=== PATIENT | male | born 1980 | race Caucasian/White ===

== ENCOUNTER 2019-10-09 02:31 | Emergency (ER) | payer MEDICAID ==
[~2019-10-09] VITALS: Ht 185.4 cm; Wt 99.3 kg
[~2019-10-09 02:31] MED LIST: CEPH-376 PO; OXYC-306 PO
--- NOTE | 2019-10-09 02:46 | NUR ---
PT AMBULATES TO ROOM FROM TRIAGE WITH STEADY GAIT.
--- NOTE | 2019-10-09 02:54 | NUR ---
DR ARELLANO AT FOR PT HISTORY AND ASSESSMENT.
[2019-10-09] MEDS ORDERED: LORazepam 1MG TABLET PO ONE (03:00)
[2019-10-09] MEDS ORDERED: LORazepam 1MG TABLET ONE (03:01)
--- NOTE | 2019-10-09 03:03 | NUR ---
PT MEDICATED PER MAR.
--- NOTE | 2019-10-09 03:08 | NUR ---
PT ON VS AND CARDIAC MONITORS. PT VSS AT THIS TIME. PT HAS CALL LIGHT WITHIN REACH.
--- NOTE | 2019-10-09 04:03 | NUR ---
PT D/C WITH D/C SUMMARY AND SCRIPTS. PT PROVIDED WITH SNACKS AND JUICE PER PT REQUEST. PT AMBULATES TO REGISTRATION DESK WITH STEADY GAIT FOR D/C HOME AND PROVIDED RESOURCES FOR ETOH DETOX. PT DENIES ANY OTHER NEEDS PERTAINING TO THIS VISIT.
[2019-10-09 04:04] VITALS: BP 167/88
== END 2019-10-09 04:12 | disposition home or self-care (01) ==
LOC: ED 04:08
DX: R06.00 Dyspnea, unspecified (principal); R06.02 Shortness of breath; F10.239 Alcohol dependence with withdrawal, unspecified; R45.1 Restlessness and agitation; F17.210 Nicotine dependence, cigarettes, uncomplicated; Y90.9 Presence of alcohol in blood, level not specified
CPT/HCPCS: 71045; 93005; 99284; 99406

== ENCOUNTER 2019-10-10 19:18 | Emergency (ER) | payer MEDICAID ==
[~2019-10-10] VITALS: Ht 185.4 cm; Wt 95.0 kg
[2019-10-10 19:27] VITALS: BP 139/89
[2019-10-10] MEDS ORDERED: SODIUM CHLORIDE FLUSH 10ML SYR IVF ONE (19:30)
[2019-10-10] MEDS ORDERED: SODIUM CHLORIDE 0.9% 1,000ML IVBOLUS ONE (19:30)
[2019-10-10] MEDS ORDERED: THIAMINE 100MG TABLET PO ONE (19:30)
[2019-10-10] MEDS ORDERED: LORazepam 2 MG/ML, 1ML IVPush ONE (19:30)
--- NOTE | 2019-10-10 19:30 | NUR ---
THIS IS A 39Y M BIB EMS [facility] [place] [facility]. PT WAS SEEN HERE RECENTLY FOR ETOH AND WAS D/C. PT REPORTS LEAVING FACILITY AND GETTING MORE VODKA. PT STS HE HAD A 5TH AND A PINT TODAY AND HAS NOT BEEN DRINKING WATER. PER EMS PT WAS TACHY IN THE 130'S AND APPEARED PALE. 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 PT CONNECTED TO ALL MONITORING VSS, AGENT SPA DESK AT BEDSIDE TO ASSESS PT AND DISCUSS POC.
--- NOTE | 2019-10-10 19:47 | NUR ---
PT TO CT
--- NOTE | 2019-10-10 19:55 | NUR ---
PT BACK FROM CT
[2019-10-10] MEDS ORDERED: THIAMINE 100MG TABLET ONE (19:57)
[2019-10-10] MEDS ORDERED: LORazepam 2 MG/ML, 1ML ONE (19:58)
--- NOTE | 2019-10-10 20:01 | NUR ---
PT MEDICATED PER MAR
--- NOTE | 2019-10-10 21:25 | NUR ---
PT PROVIDED WITH SNACKS PER TRANSPORTATION WORKER REQ
--- NOTE | 2019-10-10 21:55 | NUR ---
PT AMB TO RESTROOM STEADY GAIT. NO ASSIST REQ AT THIS TIME.
--- NOTE | 2019-10-10 22:06 | NUR ---
Patient/Caregiver given discharge instructions and they have confirmed that they understand the instructions. Patient ambulatory with steady gait.
== END 2019-10-10 22:07 | disposition home or self-care (01) ==
LOC: ED 19:48
DX: S09.90XA Unspecified injury of head, initial encounter (principal); F10.129 Alcohol abuse with intoxication, unspecified; R11.0 Nausea; R00.0 Tachycardia, unspecified; Y90.9 Presence of alcohol in blood, level not specified; W22.8XXA Striking against or struck by other objects, initial encounter; Y93.89 Activity, other specified; Y92.89 Other specified places as the place of occurrence of the external cause; Y99.8 Other external cause status
CPT/HCPCS: 36415; 70450; 80307; 93005; 96374; 99285; J2060; J7030

== ENCOUNTER 2020-09-22 22:12 | Emergency (ER) | payer MEDICAID ==
[~2020-09-22] VITALS: Ht 188 cm; Wt 90.0 kg
[~2020-09-22 22:12] MED LIST changes: -OXYC-306 PO; +OXYC1TAB17 PO
--- NOTE | 2020-09-23 00:01 | NUR ---
WITH REASSESSMENT-PATIENT SLEEPING SOUNDLY. EVEN/UNLABORED CHEST ROSHNI NOTED VSS ON NIBP/POX
--- NOTE | 2020-09-23 01:10 | NUR ---
REPORT TO FARZANA BRYAN
[2020-09-23 02:02] VITALS: BP 112/63
--- NOTE | 2020-09-23 02:02 | NUR ---
PT RESTING ON GURNEY. RESPIRATIONS EVEN AND UNLABORED. VSS.
--- NOTE | 2020-09-23 03:18 | NUR ---
RELIEF RN: PT SLEEPING. RR EVEN NON LABORED. WILL CTM
--- NOTE | 2020-09-23 04:42 | NUR ---
PT UP IN ROOM, AMBULATORY TO THE BATHROOM AND DISCHARGE DESK WITH A STEADY GAIT. PT A+OX4. PT REQUESTING DISCHARGE.
== END 2020-09-23 04:45 | disposition home or self-care (01) ==
LOC: ED 22:44
DX: F10.120 Alcohol abuse with intoxication, uncomplicated (principal); F17.210 Nicotine dependence, cigarettes, uncomplicated; Y90.0 Blood alcohol level of less than 20 mg/100 ml
CPT/HCPCS: 99406

== ENCOUNTER 2020-09-25 17:16 | Observation (INO) | payer MEDICAID ==
[~2020-09-25] VITALS: Ht 185.4 cm; Wt 97.0 kg
--- NOTE | 2020-09-25 17:27 | NUR ---
PT BIB EMS FOR ACUTE ALCOHOL INTOXICATION AND AGGRESSIVE BEHAVIOR IN [facility]. PER EMS, PT WAS SAYING INAPPROPRIATE THINGS AND GETTING AGITATED WITH PEOPLE ON THE STREET. UPON ARRIVAL TO [facility] ED, PT IS CALM, BUT STATES INAPPROPRIATE THINGS TO STAFF. PT EDUCATED ON NEED TO NOT USE OFFENSIVE LANGUAGE AND SEXUALLY HARRASS STAFF. PT ARRIVES WITH STABLE VS, AND REFUSES LETTING THIS RN ATTACH HIM TO VS MONITORING AT THIS TIME. AWAITING ERP FOR PT HISTORY AND ASSESSMENT. PT HAS CALL LIGHT WITHIN REACH AND BED RAILS UP.
[2020-09-25] MEDS ORDERED: SODIUM CHLORIDE 0.9% 1,000ML IVBOLUS ONE (18:00)
[2020-09-25 18:01] LABS: BASOPHILS % (AUTO) 1 % (0-1); EOSINOPHILS % (AUTO) 1 % (1-7); LYMPHOCYTES % (AUTO) 35 % (22-44); MEAN CORPUSCULAR HEMOGLOBIN 33.8 pg (27.5-34.5); MEAN CORPUSCULAR HGB CONC 34.7 g/dL (33.2-36.2); MEAN PLATELET VOLUME 6.8 fL (7.4-10.4); MONOCYTES % (AUTO) 5 % (2-9); NEUTROPHILS % (AUTO) 58 % (42-75); PLATELET COUNT 326 x10^3/uL (130-400); RED BLOOD COUNT 4.61 x10^6/uL (4.38-5.82)
[2020-09-25 18:09] LABS: ALANINE AMINOTRANSFERASE 44 U/L (12-78); ALBUMIN 3.9 g/dL (3.4-5.0); ANION GAP 9 mmol/L (5-15); CALCIUM 8.4 mg/dL (8.5-10.1); CHLORIDE 113 mmol/L (98-107); CREATININE 0.77 mg/dL (0.7-1.3)
[2020-09-25 18:13] LABS: ALKALINE PHOSPHATASE 95 U/L (45-117); BILIRUBIN,TOTAL 0.4 mg/dL (0.2-1.0); TOTAL PROTEIN 7.7 g/dL (6.4-8.2)
--- NOTE | 2020-09-25 20:05 | NUR ---
PT ASLEEP WITH NADN. PT CONTINUES TO PULL VS MONITORS OFF. UNABLE TO GET PT TO COOPERATE, PT WAKES UP AND TAKES THEM OFF AND THEN GOES BACK TO SLEEP. WILL CONTINUE TO MONITOR. EQUAL BILATERAL RISE AND FALL OF CHEST NOTED.
--- NOTE | 2020-09-25 20:49 | NUR ---
REPORT RECEIVED FROM GEREMIAS BRYAN
[2020-09-25 20:54] VITALS: BP 120/82
--- NOTE | 2020-09-25 20:59 | NUR ---
REPORT OF PT TO RANDI BARAJAS. ALL QUESTIONS ANSWERED.
--- NOTE | 2020-09-25 21:49 | NUR ---
PT AMBULATORY WITH STEADY GAIT TO NURSING STATION, DEMANDING FOOD AND WATER. PT INCREASINGLY AGITATED WITH ALL STAFF IN DEPARTMENT. WHEN PT PROVIDED CRACKERS AND WATER PT CONTINUES TO ESCALATE AND BECOME AGGRESIVE TOWARDS STAFF. PT NOT FOLLOWING COMMANDS AND UNABLE TO DE-ESCALATE. SECURITY CALLED, PT PROVIDED D/C INSTRUCTIONS, THREW D/C AND WATER AT STAFF AND CONTINUED TO YELL. PT ESCORTED OUT OF DEPARTMENT BY SECURITY WITH STEADY GAIT.
== END 2020-09-25 21:54 | disposition home or self-care (01) ==
LOC: ED 20:15 → EDIP 20:29 → UNDOADMIN 20:29 → EDIP 20:32 → ED 20:49
PROVIDERS: ADMIT Emergency Medicine; ATTEND Emergency Medicine
DX: F10.220 Alcohol dependence with intoxication, uncomplicated (principal); F17.200 Nicotine dependence, unspecified, uncomplicated
CPT/HCPCS: 36415; 80053; 80320; 85025; 96360; 96361; 99284; G0378; J7030; G0480